=== PATIENT | male | born 1990 | race African-American/Black ===

== ENCOUNTER 2017-09-24 14:46 | Emergency (ER) | payer OTHER | END 2017-09-24 16:44 | disposition home or self-care (01) | LOC: E/R 14:46 | DX: J30.1 Allergic rhinitis due to pollen (principal); J45.21 Mild intermittent asthma with (acute) exacerbation | CPT/HCPCS: 99283; Z7502 ==

== ENCOUNTER 2017-10-20 12:49 | Emergency (ER) | payer OTHER | END 2017-10-20 14:17 | disposition home or self-care (01) | LOC: FTE 12:49 | DX: J30.9 Allergic rhinitis, unspecified (principal) | CPT/HCPCS: 99283; Z7502 ==

== ENCOUNTER 2017-11-17 16:24 | Emergency (ER) | payer OTHER | END 2017-11-17 16:55 | disposition home or self-care (01) | LOC: E/R 16:24 | DX: J30.9 Allergic rhinitis, unspecified (principal) | CPT/HCPCS: 99283; Z7502 ==

== ENCOUNTER 2018-07-28 16:37 | Emergency (ER) | payer SELFPAY, OTHER | END 2018-07-28 18:56 | disposition left against medical advice (07) | LOC: FTE 16:37 | DX: Z53.21 Procedure and treatment not carried out due to patient leaving prior to being seen by health care provider (principal) ==

== ENCOUNTER 2018-07-31 22:15 | Emergency (ER) | payer OTHER ==
[2018-08-01 01:02] LABS: URINE BLOOD (Dip) POC Trace-intact (NEGATIVE); URINE GLUCOSE (Dip) POC Negative (NEGATIVE); URINE KETONES (Dip) POC Negative (NEGATIVE); URINE LEUKOCYTE EST (Dip) POC Negative (NEGATIVE); URINE NITRITE (Dip) POC Negative (NEGATIVE); URINE TOTAL PROTEIN POC Trace (NEGATIVE)
== END 2018-08-01 02:11 | disposition home or self-care (01) ==
LOC: FTE 22:15
DX: R59.0 Localized enlarged lymph nodes (principal)
CPT/HCPCS: 81003; 87591; 99283

== ENCOUNTER 2018-08-17 13:51 | Emergency (ER) | payer OTHER ==
[2018-08-17] MEDS: AZITHROMYCIN 250 MG TAB PO (16:40)
[2018-08-17] MEDS: CEFTRIAXONE 250 MG INJ IM (16:41)
== END 2018-08-17 16:49 | disposition home or self-care (01) ==
LOC: FTE 13:51
DX: A64 Unspecified sexually transmitted disease (principal); A74.9 Chlamydial infection, unspecified; R40.2412 Glasgow coma scale score 13-15, at arrival to emergency department
CPT/HCPCS: 96372; 99284-25

== ENCOUNTER 2018-11-06 11:33 | Emergency (ER) | payer OTHER | END 2018-11-06 13:05 | disposition home or self-care (01) | LOC: FTE 11:33 | DX: S99.921A Unspecified injury of right foot, initial encounter (principal); X58.XXXA Exposure to other specified factors, initial encounter; Y92.9 Unspecified place or not applicable | CPT/HCPCS: 99283; Z7502 ==